=== PATIENT | female | born 1975 | race Caucasian/White ===

== ENCOUNTER → 2020-11-29 | Day surgery (SDC) | payer OTHER ==
[~2020-11-29] VITALS: Ht 170.2 cm; Wt 122.5 kg
[~2020-11-29] MED LIST: ATENOLOL50 MG PO; CLARITIN10 M2 PO; COZAAR100 MG PO; EUTHYROX50 MCG PO; HCTZ12.5 MG PO; NEXIUM20 MG PO; PERCOCET 5-3251 EACH PO
[2020-11-29 08:25] LABS: HCG (URINE) SCREEN NEGATIVE (NEGATIVE)
== END | disposition home or self-care (01) ==
LOC: FAS 08:05
PROVIDERS: Obstetrics & Gynecology
DX: N93.9 Abnormal uterine and vaginal bleeding, unspecified (principal); K21.9 Gastro-esophageal reflux disease without esophagitis; I10 Essential (primary) hypertension; E03.9 Hypothyroidism, unspecified; Z98.890 Other specified postprocedural states; Z79.899 Other long term (current) drug therapy; Z20.822 Contact with and (suspected) exposure to COVID-19
CPT/HCPCS: 84703; 86850; 86900; 86901; J2250; J2704; J3010; J7120

== ENCOUNTER 2021-06-03 21:35 | Emergency (ER) | payer OTHER ==
[2021-06-03 23:41] LABS: BASOPHIL 0.4 % (0-2); EOSINOPHIL 0.8 % (0-5); HCT 43.9 % (37.0-47.0); HGB 13.8 g/dl (12.5-16.0); LYMPHOCYTE 26.3 % (15-48); MCHC 31.4 g/dL (32.0-36.0); MONOCYTE 6.8 % (0-12); MPV 10.8 fL (6.0-9.5); NRBC 0; PLT 214 K/uL (150-400); RBC 4.93 M/uL (4.20-5.40); RDW 14.9 % (11.5-14.0)
[2021-06-03 23:42] LABS: NEUTROPHIL 63.7 % (41-80)
[2021-06-03 23:51] LABS: BILIRUBIN NEGATIVE (NEGATIVE); BLOOD NEGATIVE Ery/uL (NEGATIVE); CLARITY CLEAR (CLEAR); COLOR YELLOW (YELLOW); GLUCOSE (U) NORMAL (NORMAL); LEUKOCYTES 1+ Leu/uL (NEGATIVE); NITRITE NEGATIVE (NEGATIVE); PROTEIN NEGATIVE (NEGATIVE); SPECIFIC GRAVITY 1.015 (1.001-1.030); UROBILINOGEN 0.2 mg/dL (0.2-1.0); pH 7.5 (5.0-9.0)
[2021-06-03 23:54] LABS: PROTHROMBIN TIME 12.6 SECONDS (11.8-13.4); PTT 29.1 SECONDS (24.4-34.7)
[2021-06-03 23:56] LABS: D-DIMER 1.27 ug/mLFEU (0.00-0.41)
[2021-06-03 23:57] LABS: BACTERIA 1+
[2021-06-04 00:10] LABS: PRO-BNP 218 pg/mL (<125)
[2021-06-04 00:17] LABS: BILIRUBIN - TOTAL 0.5 mg/dL (0.2-1.0); BUN/CREAT RATIO (CALC) 12.3 RATIO; C-REACTIVE PROTEIN 3.7 mg/dL (<=0.90); CREATININE 0.73 mg/dL (0.51-0.95); GLOBULIN (CALCULATION) 3.6 g/dL; MAGNESIUM 2.1 mg/dL (1.8-2.4); POTASSIUM 3.4 mmol/L (3.5-5.1); TOTAL PROTEIN 6.6 g/dL (6.4-8.2)
[2021-06-04 00:27] LABS: LACTIC ACID 1.4 mmol/L (0.4-1.9)
[2021-06-04] MEDS ORDERED: MEDROL 4MG DOSEP4 MG PO (03:19)
[2021-06-04] MEDS ORDERED: VENTOLIN HFA18 GM INH (03:19)
[2021-06-04] MEDS ORDERED: TESSALON PERLE100 M1 PO (03:19)
[2021-06-04] MEDS ORDERED: ONDANSETRON ODT4 MG PO (03:19)
[2021-06-04] MEDS ORDERED: NAPROXEN500 MG PO (03:19)
== END 2021-06-04 04:48 | disposition home or self-care (01) ==
LOC: FER 21:35
PROVIDERS: Emergency Medicine
DX: U07.1 COVID-19 (principal); I10 Essential (primary) hypertension; Z79.899 Other long term (current) drug therapy
CPT/HCPCS: 36415; 71275; 80053; 81001; 82728; 83605; 83615; 83735; 83880; 84145; 84484; 85025; 85379; 85610; 85730; 86140; 87040; 93005; J1100; M0243; Q0244; U0002